=== PATIENT | male | born 1980 | race Two or more races ===

== ENCOUNTER 2022-04-10 06:00 | Inpatient (IN) | payer OTHER ==
[~2022-04-10] VITALS: Ht 175.3 cm; Wt 79.1 kg
[2022-04-10 06:29] VITALS: BP 106/65
[2022-04-10] MEDS ORDERED: ceFAZolin 2 GM in D5W 5% 100 ML IV ONE (07:15)
[2022-04-10] MEDS ORDERED: metroNIDAZOLE 500MG/100ML 100 ML IV ONE (07:15)
[2022-04-10] MEDS ORDERED: ONDANSETRON HCL 4 MG/2 ML VIAL IV PRN ×2 (07:45→09:15)
[2022-04-10] MEDS ORDERED: MORPHINE SULFATE INJ 2 MG/ml SYRG IV PRN (07:45)
[2022-04-10 07:51] LABS: Basophils # (auto) 0.1 10 ^3/uL (0-0.2); Basophils % (auto) 0.5 % (0.0-2.0); Eosinophils # (auto) 0.1 10 ^3/uL (0-0.8); Eosinophils % (auto) 0.8 % (0.0-7.0); Hematocrit 39.3 % (41.0-53.0); Hemoglobin 13.3 g/dL (13.5-17.5); Lymphocytes # (auto) 1.5 10 ^3/uL (0.4-5.4); Lymphocytes % (auto) 13.5 % (10.0-50.0); Mean Corpuscular Hemoglobin 30.6 pg (28.0-32.0); Mean Corpuscular Hgb Conc. 33.9 g/dL (32.0-36.0); Mean Corpuscular Volume 90.3 fL (80.0-100.0); Monocytes # (auto) 0.9 10 ^3/uL (0-1.3); Monocytes % (auto) 7.6 % (0.0-12.0); Neutrophils # (auto) 8.7 10 ^3/uL (1.6-8.6); Neutrophils % (auto) 77.6 % (37.0-80.0); Red Blood Cells 4.35 10^6/uL (4.5-5.90); Red Cell Distribution Width 13.2 % (11.8-14.3); White Blood Cell 11.3 10^3/uL (4.4-10.8)
[2022-04-10] MEDS ORDERED: fentaNYL CITRATE 100 MCG/2 ML VL ONE ×2 (08:00→08:53)
[2022-04-10] MEDS ORDERED: SODIUM CHLORIDE 0.9% 1,000 ML IV SCH (08:00)
[2022-04-10] MEDS ORDERED: MIDAZOLAM HCL 2MG/2ML 2ml VIAL (1mg/ml) ONE (08:00)
[2022-04-10] MEDS: SODIUM CHLORIDE 0.9% 1,000 ML IV SCH ×2 (08:00→18:00)
[2022-04-10] MEDS ORDERED: ROCURONIUM 10MG/ML 10ML VIAL IV ONE (08:00)
[2022-04-10] MEDS ORDERED: SUCCINYLCHOLINE CHLORIDE 20 MG/ML 10ML VIAL IV ONE (08:00)
[2022-04-10] MEDS ORDERED: ONDANSETRON HCL 4 MG/2 ML VIAL ONE (08:01)
[2022-04-10] MEDS ORDERED: ceFAZolin 1GM VL ONE ×2 (08:01→09:11)
[2022-04-10] MEDS ORDERED: METOCLOPRAMIDE HCL 5MG/ml INJ 2ml VIAL ONE (08:01)
[2022-04-10] MEDS ORDERED: KETOROLAC TROMETH 60MG/2ML VIAL ONE (08:02)
[2022-04-10] MEDS ORDERED: LIDOCAINE HCL 100 MG/5ML (2%) SYRG INJ IV ONE (08:02)
[2022-04-10] MEDS ORDERED: NEOSTIGMINE 1 MG/ML INJ (10mg/10ML VIAL) ONE (08:02)
[2022-04-10] MEDS ORDERED: GLYCOPYRROLATE 0.2 MG/ML 1ML VIAL ONE (08:02)
[2022-04-10] MEDS ORDERED: PROPOFOL 10 MG/ML 20 ML IV ONE (08:02)
[2022-04-10 08:06] LABS: INR 1.05 (0.9-1.15); Partial Thromboplastin Time 28.8 sec (24.6-33.4)
[2022-04-10] MEDS ORDERED: ceFAZolin 1GM/50ML 100 ML IV ONE (08:06)
[2022-04-10] MEDS ORDERED: LIDOCAINE 1%HCL (LOCAL ANESTH) 10 ML MDV ONE (08:09)
[2022-04-10] MEDS ORDERED: BUPIVACAINE W/ EPINEPH 0.25% INJ 50ML MDV ONE (08:09)
[2022-04-10 08:10] LABS: Albumin 3.8 g/dL (3.4-5.0); Calcium 8.5 mg/dL (8.5-10.1); Potassium 3.9 mmol/L (3.5-5.1)
[2022-04-10 08:15] LABS: BUN/Creatinine Ratio 8.2; Bilirubin, Total 0.4 mg/dL (0.2-1.0); Total Protein 7.1 g/dL (6.4-8.2)
[2022-04-10] MEDS ORDERED: SODIUM CHLORIDE LOCK 10 ML ONE (08:28)
[2022-04-10] MEDS ORDERED: LIDOCAINE 2% HCL (LOCAL ANESTH.) INJ 50ML MDV IJ ONE (08:30)
[2022-04-10] MEDS ORDERED: cefTRIAXone 1GM/50ML D5W 50 ML IV SCH (09:00)
[2022-04-10] MEDS ORDERED: ACETAMINOPHEN/CODEINE#3 (300/30mg) TAB PO PRN (09:15)
[2022-04-10] MEDS ORDERED: HYDROmorphone HCL 2 MG/ML VL/or syr IV PRN (09:15)
[2022-04-10] MEDS: PANTOPRAZOLE 40 MG/10 ML VIAL INJ IV SCH (10:41)
[2022-04-10] MEDS: D5W/SOD CHL 0.45%/KCL 20MEQ 1,000 ML IV SCH ×2 (10:42→17:35)
[2022-04-10 12:44] VITALS: BP 118/66
[2022-04-10] MEDS ORDERED: metroNIDAZOLE 500MG/100ML 100 ML IV SCH (14:00)
[2022-04-10] MEDS ORDERED: ceFAZolin 1GM/50ML 50 ML IV SCH (14:00)
[2022-04-10] MEDS: metroNIDAZOLE 500MG/100ML 100 ML IV SCH ×2 (15:07→21:42)
[2022-04-10 16:56] VITALS: BP 121/70
[2022-04-10 22:00] VITALS: BP 107/60
[2022-04-11] MEDS: SODIUM CHLORIDE 0.9% 1,000 ML IV SCH ×2 (04:00→13:43)
[2022-04-11] MEDS: metroNIDAZOLE 500MG/100ML 100 ML IV SCH ×2 (05:45→13:36)
[2022-04-11] MEDS: D5W/SOD CHL 0.45%/KCL 20MEQ 1,000 ML IV SCH (06:16)
[2022-04-11 06:46] LABS: Albumin 3.4 g/dL (3.4-5.0); Basophils # (auto) 0 10 ^3/uL (0-0.2); Basophils % (auto) 0.1 % (0.0-2.0); Calcium 8.5 mg/dL (8.5-10.1); Eosinophils # (auto) 0 10 ^3/uL (0-0.8); Eosinophils % (auto) 0.1 % (0.0-7.0); Hematocrit 35.9 % (41.0-53.0); Hemoglobin 12.3 g/dL (13.5-17.5); Lymphocytes # (auto) 1.7 10 ^3/uL (0.4-5.4); Lymphocytes % (auto) 14.1 % (10.0-50.0); Mean Corpuscular Hemoglobin 30.8 pg (28.0-32.0); Mean Corpuscular Hgb Conc. 34.2 g/dL (32.0-36.0); Mean Corpuscular Volume 90.1 fL (80.0-100.0); Monocytes # (auto) 0.8 10 ^3/uL (0-1.3); Monocytes % (auto) 6.6 % (0.0-12.0); Neutrophils # (auto) 9.4 10 ^3/uL (1.6-8.6); Neutrophils % (auto) 79.1 % (37.0-80.0); Red Blood Cells 3.99 10^6/uL (4.5-5.90); Red Cell Distribution Width 13.4 % (11.8-14.3); White Blood Cell 11.9 10^3/uL (4.4-10.8)
[2022-04-11 06:49] LABS: BUN/Creatinine Ratio 5.9; Bilirubin, Total 0.6 mg/dL (0.2-1.0); Total Protein 6.1 g/dL (6.4-8.2)
[2022-04-11] MEDS: PANTOPRAZOLE 40 MG/10 ML VIAL INJ IV SCH (08:26)
[2022-04-11 08:32] VITALS: BP 116/67
[2022-04-11 13:17] VITALS: BP 117/65
[2022-04-11] MEDS ORDERED: METR500T PO (13:35)
[2022-04-11] MEDS ORDERED: ceFAZolin 1GM/50ML 50 ML IV SCH (14:00)
== END 2022-04-11 16:42 | disposition home or self-care (01) | DRG 343 ==
LOC: TELE 06:00 → WEST WING 06:21 → TELE-WESTW 10:19
PROVIDERS: ADMIT Internal Medicine; ATTEND Internal Medicine
PROC: 0DTJ4ZZ Resection of Appendix, Percutaneous Endoscopic Approach (ICD-10-PCS; principal; 2022-04-10 08:27)
DX: K35.80 Unspecified acute appendicitis (principal); K66.0 Peritoneal adhesions (postprocedural) (postinfection); Z20.822 Contact with and (suspected) exposure to COVID-19
CPT/HCPCS: 36415; 80053; 85025; 85610; 85730; 86850; 86900; 86901; 96360; C9113; G0378; J0330; J0690; J1885; J2001; J2250; J2405; J2704; J3490; J7060